=== PATIENT | male | born 1985 | race Caucasian/White ===

== ENCOUNTER 2016-07-31 06:37 | Day surgery (SDC) | payer SELFPAY ==
[~2016-07-31] VITALS: Ht 175.3 cm; Wt 100.0 kg
[2016-07-31] MEDS ORDERED: FAMOTIDINE 20MG/2ML VIAL IV STA (07:07)
[2016-07-31] MEDS ORDERED: ONDANSETRON HCL 4MG/2ML VIAL IV STA (07:07)
[2016-07-31] MEDS ORDERED: MORPHINE SULFATE 4 MG/ML CPJ (NOT FOR IM USE) IV STA (07:07)
[2016-07-31] MEDS ORDERED: SODIUM CHLORIDE 0.9% 1,000 ML IV ONE (07:07)
[2016-07-31 07:39] LABS: INR 1.1; PARTIAL THROMBOPLASTIN TIME 25.9 sec (24.0-34.0); PROTHROMBIN TIME 11.3 sec
[2016-07-31 07:44] LABS: CARBON DIOXIDE 26 mEq/L (21-32); CHLORIDE 106 mEq/L (98-107)
[2016-07-31 08:12] LABS: HEMATOCRIT. 42.9 % (42.0-52.0); HEMOGLOBIN. 14.8 g/dL (14.0-18.0); PLATELET 233 x1000/uL (130-400); RED BLOOD CELL COUNT 4.93 mill/uL (4.7-6.1); RED CELL DISTRIBUTION WIDTH 12.8 % (11.6-14.6)
[2016-07-31 09:29] LABS: CLARITY URINE CLEAR (CLEAR); COLOR URINE YELLOW (YELLOW); GLUCOSE URINE NEGATIVE (NEGATIVE); KETONES URINE NEGATIVE (NEGATIVE); LEUKOCYTE ESTERASE URINE NEGATIVE (NEGATIVE); NITRITE URINE NEGATIVE (NEGATIVE); OCCULT BLOOD URINE NEGATIVE (NEGATIVE); PROTEIN URINE NEGATIVE (NEGATIVE); SPECIFIC GRAVITY URINE 1.021 (1.005-1.030); UROBILINOGEN URINE 0.2 E.U./dL (0.2-1.0)
[2016-07-31 10:12] LABS: PLATELET ESTIMATE NORMAL
[2016-07-31] MEDS ORDERED: PIPERACILLIN/TAZ 3.375G PREMIX 50 ML IV ONE (11:00)
[2016-07-31] MEDS ORDERED: DEXT 5%/0.45% NACL KCL 10MEQ/L 1,000 ML IV SCH (11:14)
[2016-07-31] MEDS ORDERED: IPRATROPIUM/ALBUTEROL 0.5-3(2.5)MG/3ML NEB INH PRN (11:15)
[2016-07-31] MEDS ORDERED: PIPERACILLIN/TAZ 3.375G PREMIX 50 ML IV SCH (11:15)
[2016-07-31] MEDS ORDERED: ENOXAPARIN 40MG/0.4ML SYR SUBCUT SCH (11:15)
[2016-07-31] MEDS ORDERED: MAGNESIUM/ALUMINUM HYDROXIDE/SIMETHICONE 30ML UDC PO PRN (11:15)
[2016-07-31] MEDS ORDERED: LORAZEPAM 2MG/ML CPJ IV PRN (11:15)
[2016-07-31] MEDS ORDERED: HYDROCODONE/ACETAMINOPHEN 5/325MG TABLET PO PRN (11:15)
[2016-07-31] MEDS ORDERED: DOCUSATE SODIUM 100MG CAPSULE PO PRN (11:15)
[2016-07-31] MEDS ORDERED: ONDANSETRON HCL 4MG/2ML VIAL IV PRN (11:15)
[2016-07-31] MEDS ORDERED: GUAIFENESIN 200MG/10ML SUGAR FREE UDC PO PRN (11:15)
[2016-07-31] MEDS ORDERED: CLONIDINE 0.1MG TABLET PO PRN (11:15)
[2016-07-31] MEDS ORDERED: ACETAMINOPHEN 325MG TABLET PO PRN (11:15)
[2016-07-31] MEDS ORDERED: BUPIVACAINE HCL/PF 0.5% (5MG/ML) 10ML ONE (11:22)
[2016-07-31] MEDS ORDERED: SKIN ADHESIVE 0.7 GM EA TOP ONE ×2 (11:22→13:08)
[2016-07-31] MEDS ORDERED: MIDAZOLAM HCL 2 MG/2 ML VIAL ONE (11:42)
[2016-07-31] MEDS ORDERED: SUCCINYLCHOLINE CHLORIDE 200MG/10ML VIAL IV ONE (11:42)
[2016-07-31] MEDS ORDERED: ROCURONIUM BROMIDE 10MG/ML VIAL 5ML IV ONE (11:42)
[2016-07-31] MEDS ORDERED: PROPOFOL 200MG/20ML VIAL IV ONE (11:42)
[2016-07-31] MEDS ORDERED: FENTANYL CITRATE/PF 50MCG/ML 2ML VIAL ONE ×2 (11:42→12:44)
[2016-07-31] MEDS ORDERED: IOHEXOL-300 100 ML BOTTLE ONE (13:15)
[2016-07-31] MEDS ORDERED: SODIUM CHLORIDE 0.9% 10ML VIAL ONE (13:15)
[2016-07-31] MEDS ORDERED: FENTANYL CITRATE/PF 50MCG/ML 2ML VIAL IV PRN (13:45)
[2016-07-31] MEDS: HYDROMORPHONE HCL/PF 2MG/ML CPJ IV PRN ×2 (14:29→14:34)
[2016-07-31 14:34] VITALS: BP 108/56
[2016-07-31] MEDS ORDERED: NA PHOS,M-B/NA PHOS,DI-BA ENEMA 118ML PR PRN (16:00)
[2016-07-31] MEDS ORDERED: HYDROMORPHONE HCL/PF 2MG/ML CPJ IV PRN (16:00)
== END 2016-07-31 16:00 | disposition home or self-care (01) ==
LOC: ER 07:23 → UNDOADMOB 11:14 → ORIP 11:14 → OR 11:14 → ORIP 11:14 → UNDOADMIN 11:14 → OR 16:00 → UNDODISOB 16:00
PROVIDERS: ATTEND Surgery
DX: K35.80 Unspecified acute appendicitis (principal); E86.0 Dehydration
CPT/HCPCS: 36415; 44970; 73706; 74022; 74177; 76705; 80053; 81003; 83690; 85025; 85610; 85730; 88304; 93005; 96361; 96374; 96375; 99285; A4216; G0168; J0330; J1170; J2250; J2270; J2405; J2543; J3010; J3490; J7030; Q9967; G0378; J2704